=== PATIENT | female | born 1970 | race Asian ===

== ENCOUNTER 2021-02-03 17:39 | Emergency (ER) | payer BC ==
[2021-02-03 18:54] LABS: HEMOGLOBIN 14.5 gm/dl (12.3-15.3); RED BLOOD COUNT 4.51 M/UL (4.00-5.10); WHITE BLOOD COUNT 3.6 K/UL (4.5-11.0)
[2021-02-03 19:15] LABS: BUN/CREATININE RATIO 19 (0-10)
[2021-02-03] MEDS ORDERED: ZYRTEC10 MG PO (21:26)
[2021-02-03] MEDS ORDERED: DELSYM30 MG/5 ML PO (21:26)
== END 2021-02-03 21:28 | disposition home or self-care (01) ==
LOC: ER1 17:39
PROVIDERS: Physician Assistant Medical
DX: R07.89 Other chest pain (principal); I10 Essential (primary) hypertension
CPT/HCPCS: 71045; 80053; 80307; 81001; 82550; 82553; 83874; 84439; 84443; 84484; 85025; 93005; 99285